=== PATIENT | female | born 1990 | race African-American/Black ===

== ENCOUNTER 2022-05-01 01:04 | Emergency (ER) | payer MEDICAID, OTHER ==
[~2022-05-01] VITALS: Ht 167.6 cm; Wt 63.6 kg
[2022-05-01] MEDS ORDERED: LIDOCAINE 2% VISCOUS 15 ML SOLUTION UDCUP PO ONE (01:30)
[2022-05-01] MEDS ORDERED: ACETAMINOPHEN 500 MG TABLET PO ONE (01:30)
[2022-05-01] MEDS ORDERED: IBUPROFEN 600 MG TABLET PO ONE (01:30)
[2022-05-01 01:48] LABS: COVID AG,FIA SOURCE NASAL SWAB
[2022-05-01 02:02] LABS: RAPID GROUP A STREP POSITIVE (NEGATIVE)
[2022-05-01 02:14] LABS: INFLUENZA TYPE A NEGATIVE FOR TYPE A (NEGATIVE); INFLUENZA TYPE B NEGATIVE FOR TYPE B (NEGATIVE)
[2022-05-01] MEDS ORDERED: AMOX500C2 PO (02:19)
[2022-05-01] MEDS ORDERED: BENZ1LOZ50 PO (02:19)
[2022-05-01 02:26] VITALS: BP 116/75
== END 2022-05-01 02:29 | disposition home or self-care (01) ==
LOC: EMS 01:06
DX: J02.0 Streptococcal pharyngitis (principal); B95.5 Unspecified streptococcus as the cause of diseases classified elsewhere; Z20.822 Contact with and (suspected) exposure to COVID-19
CPT/HCPCS: 87430; 87804; 99284; Z7502; Z7610

== ENCOUNTER 2022-05-01 20:45 | Emergency (ER) | payer MEDICAID ==
[~2022-05-01] VITALS: Ht 167.6 cm; Wt 70.5 kg
[~2022-05-01 20:45] MED LIST: AMOX500C2 PO; BENZ1LOZ50 PO
[2022-05-01] MEDS ORDERED: ACETAMINOPHEN 500 MG TABLET PO ONE (22:15)
[2022-05-01] MEDS ORDERED: SODIUM CHLORIDE 0.9% 1,000 ML IV ONE (22:30)
[2022-05-01] MEDS ORDERED: KETOROLAC TROMETHAMINE 30 MG/ML VIAL IVP ONE (22:30)
[2022-05-01] MEDS ORDERED: LIDOCAINE 2% VISCOUS 15 ML SOLUTION UDCUP PO ONE (22:30)
[2022-05-01] MEDS ORDERED: DEXAMETHASONE SOD PHOS 4 MG/ML 5 ML VIAL IVP ONE (22:30)
[2022-05-02 00:51] VITALS: BP 128/70
== END 2022-05-02 00:55 | disposition home or self-care (01) ==
LOC: EMS 20:50
DX: J02.0 Streptococcal pharyngitis (principal)
CPT/HCPCS: 99284; 96374; 96361; 96375; J1100; J1885; J7030

== ENCOUNTER 2023-12-09 23:20 | Emergency (ER) | payer MEDICAID ==
[~2023-12-09] VITALS: Ht 167.6 cm; Wt 68.2 kg
[~2023-12-09 23:20] MED LIST changes: -BENZ1LOZ50 PO; +CEPACLZ PO
[2023-12-09 23:25] VITALS: BP 129/88; PULSE 90; RESP 16; TEMP 97.9
[2023-12-10 00:01] LABS: APPEARANCE,URINE TURBID (CLEAR); BILIRUBIN,URINE NEGATIVE (NEGATIVE); COLOR,URINE YELLOW (YELLOW); GLUCOSE, URINE (UA) NEGATIVE (NEGATIVE); KETONES,URINE NEGATIVE (NEGATIVE); LEUKOCYTE ESTERASE ,URINE LARGE (NEGATIVE); NITRATE,URINE NEGATIVE (NEGATIVE); OCCULT BLOOD,URINE MODERATE (NEGATIVE); PROTEIN,URINE 100-200,SEE CONFIRM mg/dL (NEGATIVE); SPECIFIC GRAVITIY, URINE 1.018 (1.003-1.030); UROBILINOGEN,URINE <=1.0 mg/dL (<=1.0)
[2023-12-10 00:12] LABS: SULFOSALICYLIC ACID,URINE 1+ (Negative)
[2023-12-10 00:13] LABS: BACTERIA,URINE Few /HPF (None Seen); SQUAMOUS EPITHELIAL CELL,UR Few /LPF (None Seen); WBC,URINE 51-100 /HPF (0-5)
[2023-12-10] MEDS ORDERED: CEPH-558 PO (01:11)
[2023-12-10] MEDS: PHENAZOPYRIDINE HCL 100 MG TABLET PO ONE (01:24)
[2023-12-10] MEDS: CEPHALEXIN MONOHYDRATE 500 MG CAPSULE PO ONE (01:25)
== END 2023-12-10 01:36 | disposition home or self-care (01) ==
LOC: EMS 23:21
DX: N39.0 Urinary tract infection, site not specified (principal)
CPT/HCPCS: 81001; 81002; 87086; 87186; 99283

== ENCOUNTER 2025-05-13 08:52 | Emergency (ER) | payer SELFPAY ==
[~2025-05-13] VITALS: Ht 165.1 cm; Wt 68.2 kg
[~2025-05-13 08:52] MED LIST changes: +BENZ1LOZ50 PO; -CEPACLZ PO; +CEPH-558 PO
[2025-05-13 09:00] VITALS: TEMP 99
[2025-05-13] MEDS ORDERED: IBUP-1506 PO (09:05)
[2025-05-13] MEDS: ONDANSETRON 4 MG RAPDIS TABLET PO ONE (09:19)
[2025-05-13] MEDS: AMOX TR/POT CLAV 875 MG/125 MG TABLET PO ONE (09:19)
[2025-05-13] MEDS: KETOROLAC TROMETHAMINE 30 MG/ML VIAL IM ONE (09:23)
[2025-05-13] MEDS: DEXAMETHASONE SOD PHOS 4 MG/ML 5 ML VIAL IM ONE (09:23)
[2025-05-13] MEDS ORDERED: AMOX-457 PO (09:59)
[2025-05-13] MEDS ORDERED: IBUP-1492 PO (09:59)
[2025-05-13] MEDS ORDERED: ACET-3385 PO (09:59)
[2025-05-13 10:06] VITALS: BP 130/85; PULSE 82; RESP 18; O2SAT 100
== END 2025-05-13 10:07 | disposition home or self-care (01) ==
LOC: EMS 08:54
DX: J03.90 Acute tonsillitis, unspecified (principal); Z79.899 Other long term (current) drug therapy
CPT/HCPCS: 99284; 87430; 96372; J1885; J1100